=== PATIENT | male | born 2000 | race Caucasian/White ===

== ENCOUNTER 2025-02-07 11:00 | Emergency (ER) | payer BC ==
[~2025-02-07] VITALS: Ht 172.7 cm; Wt 72.6 kg
[2025-02-07] MEDS ORDERED: VENL150C2 PO (11:15)
[2025-02-07] MEDS ORDERED: ARIP5TAB10 PO (11:16)
[2025-02-07] MEDS ORDERED: BUPR150T5 PO (11:16)
[2025-02-07] MEDS ORDERED: MECLIZINE HCL 25 MG TABLET ONE (12:08)
[2025-02-07] MEDS: MECLIZINE HCL 25 MG TABLET PO ONE (12:10)
[2025-02-07] MEDS ORDERED: MECL-159 PO (14:31)
[2025-02-07 14:47] VITALS: BP 126/77; O2SAT 99
== END 2025-02-07 14:48 | disposition home or self-care (01) ==
LOC: ER 11:00
DX: R42 Dizziness and giddiness (principal); R11.0 Nausea; F32.A Depression, unspecified; Z79.899 Other long term (current) drug therapy
CPT/HCPCS: 70450; A4606; A4663; J8597